=== PATIENT | male | born 1950 | race Caucasian/White ===

== ENCOUNTER 2018-05-23 08:05 | Outpatient (CLI) | payer MEDICARE, BC ==
[2018-05-23] VITALS (7 sets, daily range): BP systolic 140–162; BP diastolic 85–94; PULSE 55–64; TEMP 96.9–97.6
[~2018-05-23] VITALS: Ht 190.5 cm; Wt 75.5 kg
[2018-05-23 08:36] LABS: BASO % 0.4 % (0.0-2.0); EOS # 0.4 (0.0-0.7); EOS % 6.7 % (0-4.0); GRAN # 3.7 (1.4-6.5); GRAN % 65.3 % (42.2-75.2); HEMOGLOBIN 10.1 g/dl (13.5-18.0); LYMPH % 17.3 % (20.0-51.0); MEAN CELL VOLUME 96 fl (80.0-100.0); MEAN CORPUSCULAR HEMOGLOBIN 34 pg (27.0-31.0); MEAN CORPUSCULAR HGB CONC 35 g/dl (33.0-37.0); MEAN PLATELET VOLUME 9.5 fl (7.4-10.4); MONO # 0.6 (0.1-0.6); MONO % 9.8 % (1.7-9.3); PLATELET COUNT 164 K/mm3 (130-400); RED BLOOD COUNT 3.01 M/mm3 (4.20-5.60); REDCELL DISTRIBUTION WIDTH-CV 13.4 % (11.5-14.5)
[2018-05-23] MEDS ORDERED: NORVASC 10MG10 MG PO (08:45)
[2018-05-23] MEDS ORDERED: ZYLOPRIM 100MG100 MG PO (08:46)
[2018-05-23] MEDS ORDERED: ROCALTROL0.5 MCG PO (08:47)
[2018-05-23] MEDS ORDERED: COREG 3.123.125 MG/T PO (08:47)
[2018-05-23] MEDS ORDERED: ASPIRIN E.C. 8181 MG PO (08:48)
[2018-05-23] MEDS ORDERED: MULTI VITAMINS1 TAB PO (08:48)
[2018-05-23] MEDS ORDERED: MASON NATURAL1200 MG PO (08:49)
[2018-05-23 08:55] LABS: POTASSIUM 4.2 mmol/L (3.4-5.0)
[2018-05-23 09:01] LABS: CREATININE, serum 7.93 mg/dL (0.66-1.25)
[2018-05-23 09:20] LABS: PROTHROMBIN TIME 11.2 SECONDS (9.7-12.8)
== END 2018-05-23 12:02 | disposition home or self-care (01) ==
LOC: COL.RAD 08:05
PROVIDERS: Internal Medicine Cardiovascular Disease
DX: I08.3 Combined rheumatic disorders of mitral, aortic and tricuspid valves (principal)
CPT/HCPCS: J2250; J3010

== ENCOUNTER 2020-05-17 07:11 | Day surgery (SDC) | payer MEDICARE, BC ==
[2020-05-17] VITALS (15 sets, daily range): BP systolic 106–153; BP diastolic 58–84; PULSE 56–70; TEMP 98.3
[~2020-05-17] VITALS: Ht 190.7 cm; Wt 77.6 kg
[~2020-05-17 07:11] MED LIST: ASPIRIN E.C. 8181 MG PO; COREG 3.123.125 MG/T PO; MASON NATURAL1200 MG PO; MULTI VITAMINS1 TAB PO; NORVASC 10MG10 MG PO; ROCALTROL0.5 MCG PO; ZYLOPRIM 100MG100 MG PO
[2020-05-17 07:53] LABS: HEMATOCRIT 41.7 % (42.0-52.0); HEMOGLOBIN 14.4 g/dl (13.5-18.0); MEAN CELL VOLUME 101 fl (80.0-100.0); MEAN CORPUSCULAR HEMOGLOBIN 35 pg (27.0-31.0); MEAN CORPUSCULAR HGB CONC 35 g/dl (33.0-37.0); MEAN PLATELET VOLUME 9.2 fl (7.4-10.4); PLATELET COUNT 105 K/mm3 (130-400); RED BLOOD COUNT 4.12 M/mm3 (4.20-5.60)
[2020-05-17 07:54] LABS: INR 1.1 (0.8-3.0); PROTHROMBIN TIME 12.4 SECONDS (9.7-12.8)
[2020-05-17] MEDS ORDERED: LIPITOR 80MG80 MG PO (07:57)
[2020-05-17] MEDS ORDERED: BACTRIM 400 MG-1 TAB PO (07:58)
[2020-05-17] MEDS ORDERED: ELIQUIS 5MG PO (07:58)
[2020-05-17] MEDS ORDERED: PROTONIX 40MG T40 MG PO (07:59)
[2020-05-17] MEDS ORDERED: K-PHOS NEUTRAL250 M1 PO (08:01)
[2020-05-17] MEDS ORDERED: PREDNISONE 5MG5 MG PO (08:01)
[2020-05-17] MEDS ORDERED: PROGRAF 1MG1 MG PO (08:02)
[2020-05-17 08:03] LABS: CALCIUM 9.2 mg/dL (8.4-10.2); CREATININE, serum 0.98 (0.66-1.25)
[2020-05-17] MEDS ORDERED: TYLENOL PM EXTR1 TA1 PO (08:05)
--- NOTE | 2020-05-17 09:34 | NUR ---
SEE MERGE DOCUMENTATION FOR MEDICATION ADMINISTRATION AND INTRA/POST PROCEDURE SEDATION ASSESSMENTS.
--- NOTE | 2020-05-17 11:35 | NUR ---
Pt's called and updated on findings of heart cath, as well as plan to transfer pt to [facility] for higher level of care. She expresses understanding.
--- NOTE | 2020-05-17 13:10 | NUR ---
TR band slowly released by 2-3 ml at a time, and removed at this time. Site dressed with sterile 2x2, bandaid, and coban wrap. Site remains soft to palpation, radial pulse readily palpable. Pt remains free of complaints. Call light in reach. Awaiting room assignment at [facility].
--- NOTE | 2020-05-17 17:19 | NUR ---
Report called to FRIEDA Swann at [facility]. Pt left at 1710 in care [facility]. Personal belongings sent with pt. He remained free of chest pain or other complaints throughout his time in the [place]. Rt wrist remained free of bleeding or hematoma, coban wrap in place at [place].
== END 2020-05-17 17:10 ==
LOC: COL.CAR 07:11
PROVIDERS: Internal Medicine Cardiovascular Disease
DX: I25.10 Atherosclerotic heart disease of native coronary artery without angina pectoris (principal)
CPT/HCPCS: J1644; J2250; J3010; Q9967

== ENCOUNTER → 2024-06-06 | Outpatient (CLI) | payer MEDICARE, BC ==
[~2024-06-06] MED LIST changes: +BACTRIM 400 MG-1 TAB PO; +ELIQUIS 5MG PO; +Gadoterate 15 ML VIAL IV ONE; +K-PHOS NEUTRAL250 M1 PO; +LIPITOR 80MG80 MG PO; +MAG-OX 400400 MG/TAB PO; +MASON NATURAL2000 IU PO; +PACERONE200 MG PO; +PREDNISONE 5MG5 MG PO; +PROGRAF 1MG1 MG PO; +PROTONIX 40MG T40 MG PO; +TYLENOL PM EXTR1 TA1 PO
== END ==
LOC: COL.RAD 08:29
DX: Q61.02 Congenital multiple renal cysts (principal); N26.1 Atrophy of kidney (terminal); N18.5 Chronic kidney disease, stage 5; Z94.0 Kidney transplant status
CPT/HCPCS: A9575